=== PATIENT | female | born 1930 | race Caucasian/White ===

== ENCOUNTER 2019-01-08 12:15 | Inpatient (IN) | payer MEDICARE ==
[~2019-01-08] VITALS: Ht 157.5 cm; Wt 62.2 kg
[2019-01-08] MEDS ORDERED: Aspirin EC81 MG PO (12:48)
[2019-01-08 13:11] LABS: BASOPHILS ABSOLUTE AUTO 0.03 K/mm3 (0.00-0.23); BASOPHILS PERCENT AUTO 0 % (0-2); EOSINOPHILS ABSOLUTE AUTO 0.01 K/mm3 (0.00-0.68); EOSINOPHILS PERCENT AUTO 0 % (0-6); Hematocrit 43.8 % (33.0-51.0); Hemoglobin 13.2 g/dL (11.5-16.0); IMMATURE GRAN ABSOLUTE AUTO 0.05 K/mm3 (0.00-0.10); IMMATURE GRAN PERCENT AUTO 1 % (0-1); LYMPHOCYTES ABSOLUTE AUTO 1.21 K/mm3 (0.84-5.20); LYMPHOCYTES PERCENT AUTO 13 % (21-46); MONOCYTES ABSOLUTE AUTO 1.07 K/mm3 (0.16-1.47); MONOCYTES PERCENT AUTO 11 % (4-13); Mean Corpuscular HGB 30.6 pg (26.0-34.0); Mean Corpuscular HGB Conc 30.1 g/dL (31.5-36.5); Mean Corpuscular Volume 102 fL (80-100); Mean Platelet Volume 10.7 fL (9.1-12.4); NEUTROPHILS ABSOLUTE AUTO 7.14 K/mm3 (1.96-9.15); NEUTROPHILS PERCENT AUTO 75 % (41-73); Platelet Count 219 K/mm3 (150-400); RDW Coefficient Variation 13.8 % (11.7-14.2); RDW Standard Deviation 52.1 fL (35.1-46.3); Red Blood Cell Count 4.31 M/mm3 (3.80-5.20); White Blood Cell Count 9.51 K/mm3 (4.00-11.30)
[2019-01-08 13:31] LABS: Albumin, Blood 3.5 g/dL (3.4-5.0); Albumin/Globulin Ratio 1.1 (0.8-1.8); Bilirubin, Total 1.1 mg/dL (0.1-1.0); Bun/Creatinine Ratio 24.6 (12.0-20.0); Calcium, Blood 8.6 mg/dL (8.5-10.1); Creatinine, Blood 1.14 mg/dL (0.40-1.00); Globulin, Blood 3.3 g/dL (2.2-4.0); Potassium, Blood 4.1 mmol/L (3.5-5.5); Total Protein, Blood 6.8 g/dL (6.4-8.2)
[2019-01-08 14:09] LABS: Troponin I 18.8 ng/mL (0.000-0.040)
[2019-01-08 15:45] LABS: International Normalized Ratio 1.02; Prothrombin Time Results 10.8 Sec (9.7-11.5)
--- NOTE | 2019-01-08 17:03 | NUR ---
ARRIVAL PT ARRIVED TO PCU 7 VIA STRETCHER. PT AMBULATED FROM STRETCHER TO BED. DYSPNEA NOTED ON EXERTION. ALERT AND ORIENTED X3. VSS. DENIES PAIN AT THIS TIME. LUNG SOUNDS CLEAR, DIMINISHED RUL, CRACKLES LLL. SINUS TACHYCARDIA RATE 101 PER RUG INSPECTOR HELPER. HEPARIN GTT AND BOLUS STARTED PER ORDERS. CALL LIGHT IN REACH.
--- NOTE | 2019-01-08 18:17 | NUR ---
SHIFT SUMMARY PT ARRIVED FROM ER. NO ACUTE CHANGES SINCE ARRIVAL. ALERT AND ORIENTED X3. DENIES PAIN THROUGHOUT THE DAY. DYSPNEA ON EXERTION. LUNG SOUNDS CLEAR, DIMINISHED RUL, CRACKLES LLL. VSS. PT STATES SHE IS YAZIDISM, BLOOD REFUSAL FORM SIGNED. AT BEDSIDE. WILL CONTINUE TO MONITOR.
[2019-01-09 05:37] LABS: BASOPHILS ABSOLUTE AUTO 0.02 K/mm3 (0.00-0.23); BASOPHILS PERCENT AUTO 0 % (0-2); EOSINOPHILS ABSOLUTE AUTO 0.01 K/mm3 (0.00-0.68); EOSINOPHILS PERCENT AUTO 0 % (0-6); Hematocrit 39.1 % (33.0-51.0); Hemoglobin 12.7 g/dL (11.5-16.0); IMMATURE GRAN ABSOLUTE AUTO 0.03 K/mm3 (0.00-0.10); IMMATURE GRAN PERCENT AUTO 0 % (0-1); LYMPHOCYTES ABSOLUTE AUTO 1.15 K/mm3 (0.84-5.20); LYMPHOCYTES PERCENT AUTO 13 % (21-46); MONOCYTES ABSOLUTE AUTO 1.04 K/mm3 (0.16-1.47); MONOCYTES PERCENT AUTO 12 % (4-13); Mean Corpuscular HGB 30.6 pg (26.0-34.0); Mean Corpuscular HGB Conc 32.5 g/dL (31.5-36.5); Mean Platelet Volume 10.9 fL (9.1-12.4); NEUTROPHILS ABSOLUTE AUTO 6.63 K/mm3 (1.96-9.15); NEUTROPHILS PERCENT AUTO 75 % (41-73); Platelet Count 175 K/mm3 (150-400); RDW Coefficient Variation 13.7 % (11.7-14.2); Red Blood Cell Count 4.15 M/mm3 (3.80-5.20); White Blood Cell Count 8.88 K/mm3 (4.00-11.30)
[2019-01-09 05:45] LABS: Mean Corpuscular Volume 94 fL (80-100)
--- NOTE | 2019-01-09 05:52 | NUR ---
SHIFT SUMMARY PATIENT REMAINED STABLE THROUGHOUT SHIFT, ALERT AND ORIENTED, NORMAL SINUS RHYTHM AT 79, SOB ON [id number], DENIES PAIN, NUMBNESS OR TINGLING AT THIS TIME. BED LOCK, POSITION IN LOW POSITION AND CALL LIGHT WITHIN REACH.
[2019-01-09 06:09] LABS: Alanine Aminotransfer (ALT/SGP 91 U/L (12-78); Albumin, Blood 3.3 g/dL (3.4-5.0); Alk Phos 75 U/L (50-136); Anion Gap 9 mmol/L (6-16); Aspartate Aminotrans (AST/SGOT 233 U/L (12-37); Bilirubin, Total 0.7 mg/dL (0.1-1.0); Blood Urea Nitrogen 32 mg/dL (8-24); Bun/Creatinine Ratio 33.6 (12.0-20.0); CHOL/HDL RATIO 2.7; CO2, Blood 24 mmol/L (21-32); Calcium, Blood 8.5 mg/dL (8.5-10.1); Chloride, Blood 105 mmol/L (98-108); Cholesterol 166 mg/dL (50-200); Creatinine, Blood 0.95 mg/dL (0.40-1.00); Globulin, Blood 3.2 g/dL (2.2-4.0); Glomerular Filtration Rate 59 (60-); Glucose, Blood 117 mg/dL (70-99); HDL Cholesterol 61 mg/dL (>39); LDL/HDL RATIO 1.5; Low Density Lipoprotein Chol 89 mg/dL (0-110); Potassium, Blood 3.6 mmol/L (3.5-5.5); Sodium, Blood 138 mmol/L (136-145); Total Protein, Blood 6.5 g/dL (6.4-8.2); Triglycerides 82 mg/dL (30-160); Very Low Density Lipoprot Chol 16 mg/dL (6-32)
--- NOTE | 2019-01-09 11:11 | NUR ---
1050 PT TO HEART CENTER VIA
--- NOTE | 2019-01-09 11:49 | NUR ---
echocardiogram completed
--- NOTE | 2019-01-09 12:11 | NUR ---
PT RETURNED FROM HEART CENTER. RIGHT WRIST SOFT, NO BLEED OR HEMATOMA, TR BAND AND ARM BOARD IN PLACE. VSS. DENIES PAIN. CALL LIGHT IN REACH.
--- NOTE | 2019-01-09 18:03 | NUR ---
SHIFT SUMMARY PT RESTING IN BED THROUGHOUT THE DAY, UP TO CHAIR THIS EVENING. ALERT AND ORIENTED X3. DENIES PAIN THROUGHOUT THE DAY. LUNG SOUNDS CLEAR, CRACKLES TO THE BASES. DYSPNEA ON EXERTION, BUT RECOVERS EASILY. PT TO HEART CENTER FOR ANGIOGRAM. UPON RETURN, TR BAND IN PLACE. RIGHT WRIST SOFT, NO BLEED OR HEMATOMA, TR BAND CDI. DENIES PAIN AT THIS TIME. UP TO BEDSIDE COMMODE INDEPENDENTLY, APPEARS TO BE BREATHING MORE EASILY THIS AFTERNOON AFTER HER DOSE OF LASIX. AT BEDSIDE THROUGHOUT THE DAY. WILL CONTINUE TO MONITOR.
--- NOTE | 2019-01-09 18:43 | NUR ---
ALL AIR REMOVED FROM TR BAND PER PROTOCOL. NO BLEEDING NOTED. RIGHT WRIST SOFT, NO BLEED OR HEMATOMA. ARM BOARD IN PLACE.
--- NOTE | 2019-01-09 19:30 | NUR ---
ASSUMED CARE PT CARE ASSUMED AT APPROXIMATELY 1900. PT IS AOX4 AND SITTING UP IN BED VISITING WITH SPOUSE. PT DENIES CP AT THIS TIME. R RADIAL SITE WITH TR BAND IN PLACE OVER PINPOINT INCISION WITH SMALL AMOUNT OF DRY, RED DRAINAGE NOTED UNDER TR BAND. NO BRUSING, HEMATOMA OR SWELLING NOTED TO R RADIAL SITE AND PT DENIES PAIN ON PALPATION. TR BAND IS COMPLETELY DEFLATED AND WHITE ARM BOARD REMAINS IN PLACE TO DISCOURAGE WRIST MOVEMENT AT THIS TIME. CAPILLARY REFILL WNL AND PULSES PALPABLE. WILL CONTINUE WITH ASSESSMENT AND MONITORING.
[2019-01-10 04:27] LABS: Bun/Creatinine Ratio 33.4 (12.0-20.0); Calcium, Blood 8.3 mg/dL (8.5-10.1); Creatinine, Blood 0.96 mg/dL (0.40-1.00); Magnesium, Blood 2.3 mg/dL (1.6-2.4); Potassium, Blood 3.4 mmol/L (3.5-5.5)
--- NOTE | 2019-01-10 06:51 | NUR ---
SHIFT SUMMARY PT HAS REMAINED AOX4 THROUHGOUT SHIFT. VSS. PLEASANT AND COOPERATIVE WITH CARE. PT CONTINUES TO AMBULATE WITH STANDBY ASSIST TO BEDSIDE COMMODE. DENIES CHEST PAIN, BUT CONTINUES TO HAVE DYSPNEA WITH EXERTION THAT HAS DECREASED THROUGHOUT THE NIGHT PER PT. R RADIAL SITE HAS REMAINED UNCHANGED AND CLEAR TEGADERM DRESSING COVERS SITE WITH ARM BOARD IN PLACE. PT EDUCATED ON POST PROCEDURE RESTRICTIONS AND ENCOURAGED TO NOT USE R WRIST EXCESSIVELY. NO OTHER CHANGES NOTED FROM INITIAL ASSESSMENT. WILL CONTINUE TO MONITOR AND REPORT ON ONCOMING SHIFT RN. BED IN LOW POSITION, CALL LIGHT IN REACH.
[2019-01-10 11:07] LABS: Hematocrit 41.8 % (33.0-51.0); Hemoglobin 13.2 g/dL (11.5-16.0); Mean Corpuscular HGB 30.7 pg (26.0-34.0); Mean Corpuscular HGB Conc 31.6 g/dL (31.5-36.5); Mean Platelet Volume 10.9 fL (9.1-12.4); Platelet Count 211 K/mm3 (150-400); RDW Coefficient Variation 13.8 % (11.7-14.2); RDW Standard Deviation 49.6 fL (35.1-46.3); White Blood Cell Count 10.65 K/mm3 (4.00-11.30)
--- NOTE | 2019-01-10 11:09 | NUR ---
PT READY FOR DISCHARGE. PT STATES SHE HAD A BLACK BM. DR. RUDOLPH NOTIFIED, ORDERS RECEIVED.
[2019-01-10 11:12] LABS: Mean Corpuscular Volume 97 fL (80-100)
[2019-01-10] MEDS ORDERED: ATOR40TA PO (11:56)
[2019-01-10] MEDS ORDERED: CLOP75 PO (11:58)
[2019-01-10] MEDS ORDERED: FURO40 PO (11:59)
[2019-01-10] MEDS ORDERED: METO25ER PO (12:00)
[2019-01-10] MEDS ORDERED: ENTRESTO 24 MG1 EACH PO (12:02)
[2019-01-10] MEDS ORDERED: PANT40 PO (12:03)
[2019-01-10] MEDS ORDERED: Omeprazole20 M1 PO (12:41)
--- NOTE | 2019-01-10 13:36 | NUR ---
PT'S CBC IS STABLE. OK PER DR. RUDOLPH FOR DISCHARGE. PT AND CONCERNED ABOUT MEDICATIONS COST AND NECESSITY. STATES "SHE DOES NOT HAVE A STOMACH ULCER. THE BLACK STOOL STARTED AFTER SHE STARTED TAKING THESE MEDICATIONS" DISCUSSED RISK OF ULCER / BLEEDING R/T PLAVIX AND EDUCATED FAMILY THAT PROTONIX WAS PRESCRIBED TO PREVENT AND TREAT ULCERS. STATES "SHE DOES NOT HAVE ULCERS". DISCUSSED MEDS AND BLACK STOOL WITH DR. DURANT. DR. DURANT WANTS TO HOLD OFF ON PLAVIX UNTIL SHE IS EVALUATED BY GI AN OUTPATIENT SINCE SHE IS HAVING BLACK STOOLS. WILL DC PLAVIX AND PROTONIX, ADD OMEPRAZOLE [address] RUDOLPH NOTIFIED. [facility] CALLED WITH CHANGES TO PRESCRIPTIONS. FAMILY SEEMS AGREEABLE TO NEW MEDICATIONS. INSTRUCTED TO STOP AND ELECTROCARDIOGRAPH TECHNICIAN COUPON AND SAMPLES OF ENTRESTO FROM DR. DURANT' OFFICE. DISCHARGE MEDICATIONS, DISCHARGE INSTRUCTIONS, MEDICATION EDUCATION, CHF EDUCATION, AND POST RADIAL ACCESS INSTRUCTIONS REVIEWED WITH PT AND . PT VERBALIZES UNDERSTANDING AND DENIES QUESTIONS. PT'S STATES "THIS IS RIDICULOUS. THIS IS TOO MUCH INFORMATION." IV REMOVED. PT DISCHARGED WITH BELONGINGS VIA WHEELCHAIR TO WAITING CAR.
[2019-01-10 14:22] LABS: Stool Occult Blood Guaiac 1 Pos (Neg)
== END 2019-01-10 13:31 | disposition home or self-care (01) | DRG 280 ==
LOC: ER 12:15 → PCU 12:16 → ERHOLD 12:16 → ER 15:04 → PCU 15:04 → ERHOLD 15:04 → PCU 15:04 → ERHOLD 16:06 → PCU 01-09 17:00
PROVIDERS: Emergency Medicine; Internal Medicine Cardiovascular Disease; Pharmacist; ADMIT Hospitalist
PROC: B2111ZZ Fluoroscopy of Multiple Coronary Arteries using Low Osmolar Contrast (ICD-10-PCS; principal; 2019-01-10)
DX: I21.4 Non-ST elevation (NSTEMI) myocardial infarction (principal); I50.21 Acute systolic (congestive) heart failure; J96.01 Acute respiratory failure with hypoxia; E87.1 Hypo-osmolality and hyponatremia; N17.9 Acute kidney failure, unspecified; N18.3 Chronic kidney disease, stage 3 (moderate); R73.9 Hyperglycemia, unspecified
CPT/HCPCS: 36415; 71046; 80048; 80053; 80061; 82272; 82947; 83036; 83735; 83880; 84484; 85025; 85027; 85610; 85730; 93005; 93010; 93306; 93454; 99285-25; A9270; C1769; C1894; G0378; J1644; J1940; J2250; J3010; J7030; Q9967

== ENCOUNTER 2019-01-14 07:32 | Inpatient (IN) | payer MEDICARE ==
[~2019-01-14] VITALS: Ht 157.5 cm; Wt 64.7 kg
[~2019-01-14 07:32] MED LIST: ATOR40TA PO; Aspirin EC81 MG PO; CLOP75 PO; ENTRESTO 24 MG1 EACH PO; FURO40 PO; METO25ER PO; Omeprazole20 M1 PO; PANT40 PO
[2019-01-14 07:49] LABS: BASOPHILS ABSOLUTE AUTO 0.02 K/mm3 (0.00-0.23); BASOPHILS PERCENT AUTO 0 % (0-2); EOSINOPHILS ABSOLUTE AUTO 0.05 K/mm3 (0.00-0.68); EOSINOPHILS PERCENT AUTO 1 % (0-6); Hematocrit 38.4 % (33.0-51.0); IMMATURE GRAN ABSOLUTE AUTO 0.03 K/mm3 (0.00-0.10); IMMATURE GRAN PERCENT AUTO 0 % (0-1); LYMPHOCYTES ABSOLUTE AUTO 1.44 K/mm3 (0.84-5.20); LYMPHOCYTES PERCENT AUTO 18 % (21-46); MONOCYTES ABSOLUTE AUTO 0.78 K/mm3 (0.16-1.47); MONOCYTES PERCENT AUTO 10 % (4-13); Mean Corpuscular HGB 30.2 pg (26.0-34.0); Mean Corpuscular HGB Conc 31.3 g/dL (31.5-36.5); Mean Corpuscular Volume 97 fL (80-100); Mean Platelet Volume 10.9 fL (9.1-12.4); NEUTROPHILS ABSOLUTE AUTO 5.49 K/mm3 (1.96-9.15); NEUTROPHILS PERCENT AUTO 70 % (41-73); Platelet Count 240 K/mm3 (150-400); RDW Coefficient Variation 13.8 % (11.7-14.2); RDW Standard Deviation 48.6 fL (35.1-46.3); Red Blood Cell Count 3.98 M/mm3 (3.80-5.20); White Blood Cell Count 7.81 K/mm3 (4.00-11.30)
[2019-01-14 08:16] LABS: Albumin, Blood 3.1 g/dL (3.4-5.0); Bilirubin, Total 0.7 mg/dL (0.1-1.0); Bun/Creatinine Ratio 25.7 (12.0-20.0); Calcium, Blood 8.1 mg/dL (8.5-10.1); Creatinine, Blood 2.02 mg/dL (0.40-1.00); Potassium, Blood 3.9 mmol/L (3.5-5.5); Total Protein, Blood 6.1 g/dL (6.4-8.2)
[2019-01-14 08:18] LABS: Troponin I 4.51 ng/mL (0.000-0.040)
--- NOTE | 2019-01-14 15:10 | NUR ---
1355: PT TO ICU 14 FROM ER AT THIS TIME, REPORT RECEIVED FROM COURTNEY. ASSESSMENT COMPLETED, PT ALERT AND ORIENTED X4, APPROPRIATE AND COOPERATIVE. HRR, LS CTA, PT REPORTS FEELING SOB WITH EXERTION, SPO2 98-100% ON 2L/NC. BP HYPOTENSIVE, MAP 60, PT DENIES DIZZINESS OR CP, DENIES SOB AT REST. AT BEDSIDE. 1430: AARTI RN AT BEDSIDE FOR POWERGLIDE. 1500: POWERGLIDE PLACEMENT UNSUCCESSFUL, DOBUTAMINE INFUSING AT 2.5MCG/KG/MIN VIA PERIPHERAL IV AT THIS TIME FOR MAP 59. PT CONTINUES TO DENY C/O, OTHER VSS.
[2019-01-14 17:37] LABS: Source, Urine Catheter
[2019-01-14 17:41] LABS: Appearance, Urine Hazy (Clear); Bilirubin, Urine Neg (Neg); Blood, Urine Neg (Neg); Color, Urine Yellow (P-Yellow); Glucose Qualitative, Urine Neg (Neg); Ketones, Urine 1+ (Neg); Leukocyte Esterase, Urine Neg (Neg); Nitrite, Urine Neg (Neg); Protein, Urine 3+ (Neg); Specific Gravity, Urine 1.025 (1.003-1.022); Urobilinogen, Urine NORM (Normal)
[2019-01-14 17:58] LABS: Bacteria Few /hpf; Red Blood Cells, Urine Not Seen /hpf (0-2); Squamous Epithelial Cells Few /hpf (Few); White Blood Cells, Urine Rare /hpf (0-5)
[2019-01-14 17:59] LABS: Amorphous Mod (0-Heavy); Hyaline Casts TNTC /lpf (0-2); Mucus Light (0-Heavy)
--- NOTE | 2019-01-14 19:20 | NUR ---
164: DR. VERDUGO AWARE OF TROPONIN, NO NEW ORDERS RE: TROPONIN. CONTINUING TO TITRATE DOBUTAMINE PER ORDERS. MAP 50'S, PT ASYMPTOMATIC, STATES SOB IS MINIMAL WITH REST, SPO2 98% ON 2L/NC. 1814: DR NOTIFIED OF MAP 49-50'S, DR. VERDUGO STATES TO LEAVE DOBUTAMIN INFUSING AT 20MCG/KG/MIN. PT CODE STATUS CHANGED TO DNR PER PT AND DR. VERDUGO. NO CHANGES MADE TO PT'S MEDICATION INFUSION AT THIS TIME. PT ASYMPTOMATIC, DENIES CHEST PAIN OR DIZZINESS, STATES SOB IS MINIMAL. RAYMOND INSERTED PER ORDERS, 20ML OUT, SPECIMEN SENT TO LAB. APPETITE IS POOR, PT TOOK A FEW BITES OF DINNER. 1899: REPORT TO CHONG FLORES. MAP 40'S, PT REMAINS ALERT AND ORIENTED X4, ASYMPTOMATIC. SPO2 HIGH 90'S ON 2L/NC.
--- NOTE | 2019-01-14 19:33 | NUR ---
DR. MCDOWELL NOTIFIED: UPDATED RE: FALLING BLOOD PRESSURES AND DISCUSSION WITH PT RE: DNR STATUS AND EXTENT OF CARE DESIRED BY PT. PT UNDESISIVE AT THIS POINT. PT STATED, "MAYBE MY BODY JUST DOESN'T WANT TO GO THROUGH ALL OF THAT". NEW ORDERS PER DR. MCDOWELL TO GIVE 500cc NS BOLUS AND DR. MCDOWELL STATED WILL BE BY TO TALK WITH THE PATIENT.
--- NOTE | 2019-01-14 19:47 | NUR ---
DR. MCDOWELL AT BEDSIDE. ORDERED ONE LITER BOLUS NOW.
--- NOTE | 2019-01-14 20:21 | NUR ---
DR. MCDOWELL TO BEDSIDE. NEW ORDERS TO REDUCE NS BOLUS BACK TO 500cc THEN MAINTENANCE FLUID NS 50ml/hr AFTER BOLUS COMPLETE.
--- NOTE | 2019-01-14 20:23 | NUR ---
IV ACCESS: ONE 20g TO R HAND AT CHANGE OF SHIFT. APPARENTLY DAY SHIFT RN'S TRIED SEVERAL TIMES FOR SECOND ACCESS. THIS RN AND WORKFORCE ANALYST X3 ATTEMPTS NO SUCCESS. DR. MCDOWELL AT BEDSIDE STATED TO INFUSE NS BOLUS FOR NOW. WILL TRY SECOND IV ACCESS AFTER NS BOLUS COMPLETE. DOBUTAMINE ON HOLD WHEN NS BOLUS STARTED. DR. MCDOWELL AWARE.
--- NOTE | 2019-01-14 20:47 | NUR ---
UPDATE: DR. MCDOWELL TALKED TO PT'S SPOUSE. DR. MCDOWELL TO BEDSIDE ONCE MORE AND VERBAL TO DC BOLUS AND DC ORDER FOR MAINTENANCE NS 50mL/hr AND TO LEAVE NS ON TKO. STEM CRUSHERCHONG NASH AT BEDSIDE AND EMPHASIZED ONCE MORE DOBUTAMINE INFUSING IN A PERIPHERAL AND NEED FOR CENTERAL LINE. DR. MCDOWELL GAVE VERBAL FOR INTESIVIST CONSULT FOR LINE PLACEMENT. DR. LEGGETT IN DEPARTMENT AND CONSULTED PER STEM CRUSHER WHO STATED THAT DR. LEGGETT GAVE A VERBAL TO CONSULT CARDIOLOGY. STEM CRUSHER SAAD CALL DR. RIGGINS AND UPDATED DR. RIGGINS WHO STATED DID NOT WANT TO PLACE CENTRAL LINE AT THIS TIME SINCE PT IS ALERT AND ORIENTED.
--- NOTE | 2019-01-14 20:48 | NUR ---
CALL TO DR RIGGINS REGARDING HYPOTENSION AND NEEDING A CENTRAL LINE. REPORT GIVEN. NO CENTAL LINE AT THIS TIME.
--- NOTE | 2019-01-14 21:39 | NUR ---
DR. LEGGETT AT [facility] FOR CL PLACEMENT.
--- NOTE | 2019-01-14 21:55 | NUR ---
CHEST XRAY DONE. DR. BETSEY UNGER FOR USE OF C.L.
--- NOTE | 2019-01-14 22:03 | NUR ---
DR. RAMIREZ AT BEDSIDE.
--- NOTE | 2019-01-14 22:05 | NUR ---
PERIPHERAL IV DC'D. TKO AND DOBUTAMINE INFUSING THROUGH CL. DR. RAMIREZ CONTINUES AT BEDSIDE.
--- NOTE | 2019-01-14 22:30 | NUR ---
WHILE AT BEDSIDE, DR. RAMIREZ TALKED EXTENXIVELY WITH PT RE: CURRENT TREATMENT AND FURTHER TREATMENT AVAILABLE AND SUGGESTED. PT STATED DID NOT WANT AND ART LINE PLACED AND DID NOT WANT ANY ADDITIONAL TREATMENT OR ADDED VASOPRESSORS. PT STATED WANTED TO STAY WITH CURRENT TREATMENT IS WITH THE HOPES OF SEEING FAMILY WHEN THEY ARRIVE. DR. RAMIREZ STATED TO CONTACT DR. MCDOWELL RE: CURRENT MEDICATION INFUSIIONS AND MONITOR PARIMETERS. DR. MCDOWELL CALLED AND STATED TO KEEP CURRENT NS AT TKO AND DOBUTAMINE AT CURRENT RATE (20mcg/kg/min) AND TO OVERIDE MONITOR BP PARIMETERS.
--- NOTE | 2019-01-15 03:30 | NUR ---
PT WITH FAMILY AT BEDSIDE. FAMILY UPDATED WITH PT'S INVOLVMENT IN EXPLAINING DISCUSSIONS WITH DR. MCDOWELL AND DR. RAMIREZ. PT A+O WITH NO CHANGES IN MENTATION, TALKING FULL SENTENCES APPROPRIATELY. QUESTIONS ANSWERED TO PT'S SPOUSE AND SON. FAMILY REMAINS AT BEDSIDE CONVERSING WITH PT.
[2019-01-15 04:52] LABS: BASOPHILS PERCENT AUTO 0 % (0-2); EOSINOPHILS PERCENT AUTO 0 % (0-6); Hematocrit 32.3 % (33.0-51.0); Hemoglobin 10.4 g/dL (11.5-16.0); IMMATURE GRAN ABSOLUTE AUTO 0.03 K/mm3 (0.00-0.10); IMMATURE GRAN PERCENT AUTO 1 % (0-1); LYMPHOCYTES ABSOLUTE AUTO 0.43 K/mm3 (0.84-5.20); LYMPHOCYTES PERCENT AUTO 7 % (21-46); MONOCYTES ABSOLUTE AUTO 0.61 K/mm3 (0.16-1.47); MONOCYTES PERCENT AUTO 10 % (4-13); Mean Corpuscular HGB 30.9 pg (26.0-34.0); Mean Corpuscular HGB Conc 32.2 g/dL (31.5-36.5); Mean Corpuscular Volume 96 fL (80-100); Mean Platelet Volume 10.9 fL (9.1-12.4); NEUTROPHILS ABSOLUTE AUTO 5.14 K/mm3 (1.96-9.15); NEUTROPHILS PERCENT AUTO 83 % (41-73); Platelet Count 153 K/mm3 (150-400); RDW Coefficient Variation 13.9 % (11.7-14.2); RDW Standard Deviation 49.1 fL (35.1-46.3); Red Blood Cell Count 3.37 M/mm3 (3.80-5.20); White Blood Cell Count 6.21 K/mm3 (4.00-11.30)
[2019-01-15 05:17] LABS: Albumin, Blood 2.8 g/dL (3.4-5.0); Albumin/Globulin Ratio 1.1 (0.8-1.8); Bilirubin, Total 0.5 mg/dL (0.1-1.0); Bun/Creatinine Ratio 23.3 (12.0-20.0); Calcium, Blood 7.7 mg/dL (8.5-10.1); Creatinine, Blood 2.66 mg/dL (0.40-1.00); Globulin, Blood 2.5 g/dL (2.2-4.0); Potassium, Blood 4.2 mmol/L (3.5-5.5); Total Protein, Blood 5.3 g/dL (6.4-8.2)
--- NOTE | 2019-01-15 06:24 | NUR ---
DR. GLASS NOTIFIED RE: TROPONIN OF 5.27. NEW ORDER TO REPEAT TROPONIN IN EIGHT HOURS.
--- NOTE | 2019-01-15 14:24 | NUR ---
0715: CARE ASSUMED, ASSESSMENT COMPLETED. PT RESTING IN BED, A&0X4, DENIES CHEST PAIN/PRESSURE, SOB, DIZZINESS, DIAPHORESIS, OR NAUSEA AT THIS TIME. MAP REMAINS 40'S, DOBUTAMINE INFUSING PER ORDERS AT 20MCG/KG/MIN. SPO2 HIGH 90'S ON RA, O2 LEFT OFF. PT DENIES NEEDS OR C/O AT THIS TIME. 0930: ROCEPHIN INFUSING PER ORDERS, SON AND AT BEDSIDE TALKING WITH PT, PT CALM AND COOPERATIVE, DENIES NEEDS. APPETITE POOR, PT DENIES NAUSEA OR ABD PAIN. PT AWARE OF SITUATION, STATES SHE KNOWS THAT HER HEART WILL NOT RECOVER AND THAT SHE DOES NOT WANT EXTRAORDINARY LIFE SAVING MEASURES TAKEN. DR. HOGUE AT BEDSIDE TO SPEAK WITH PT AND FAMILY, PT AGREES TO WAIT UNTIL HER ADULT CHILDREN ARRIVE FROM OUT OF STATE BEFORE MAKING THE DECISION TO MOVE FORWARD WITH COMFORT CARE. STATES HE WANTS TO TAKE HOME BUT WOULD LIKE TO HAVE PRESSORS AVAILABLE, AND PT EDUCATED REGARDING MEDICATIONS, HOSPITAL CARE VS. HOME CARE AND THE IMPLICATIONS OF EACH. 1100: NO CHANGES NOTED, MAP REMAINS 40'S, PT DENIES DISCOMFORT. 1300: PT RESTING IN BED WITH EYES CLOSED, SON AND STEPPED OUT MOMENTARILY. VS REMAIN UNCHANGED. 88879: CRITICAL RESULTS RECEIVED, DR. ENRIQUEZ NOTIFIED, NEW ORDERS TO DC ALL FUTURE TROPONIN DRAWS. NO OTHER ORDERS AT THIS TIME. PT ALERT AND ORIENTED, DENIES CHEST PAIN/PRESSURE, OR SOB. SPO2 HIGH 90'S ON RA. VS REMAIN UNCHANGED, DOBUTAMINE CONTINUES TO INFUSE.
--- NOTE | 2019-01-15 16:15 | NUR ---
1415: PT'S FAMILY HAS ARRIVED FROM OUT OF STATE, ARE AT BEDSIDE AT THIS TIME VISITING WITH PT. PT REMAINS A&0X4, MAP 40'S, DOBUTAMINE INFUSION UNCHANGED. PALLIATAVE CARE AT BEDSIDE, WILL NOTIFY DR. HOGUE OF FAMILY'S ARRIVAL WELL.
--- NOTE | 2019-01-15 17:02 | NUR ---
DR. HOGUE AT BEDSIDE.
--- NOTE | 2019-01-15 18:46 | NUR ---
1730: DR HOGUE DISCUSSED HEALTHCARE OPTIONS WITH FAMILY, INCLUDING HOSPICE CARE AT HOME AND COMFORT CARE IN THE HOSIPTAL. PT STATES SHE WOULD LIKE TO RESUME DOBUTAMINE TONIGHT AND THINK ABOUT HER OPTIONS, REPORTS SHE WILL DISCUSS THE PLAN WITH HER FAMILY AND TALK TOMORROW AFTERNOON WITH THE DOCTOR REGARDING HER DECISION. 1830: PT REFUSED DINNER STATING SHE HAS A POOR APPETITE, REFUSES REGULAR DIET AND FOOD BROUGHT BY FAMILY MEMBERS. PT DENIES SOB, CHEST PAIN/PRESSURE, DIZZINES, DIAPHORESIS, OR NAUSEA, HAS DENIED THESE SX ALL DAY. MAP 41, HR 96, DOBUTAMINE INFUSION 20MCK/KG/HR, URINE OUTPUT 12ML THIS SHIFT. LS WITH FINE CRACKLES IN BASES, SPO2 96% ON RA, PT RESTING IN BED WITH EYES CLOSED WHILE FAMILY IS OUT OF ROOM, DENIES NEEDS OR DISCOMFORT. REPORT TO ONCOMING SHIFT.
--- NOTE | 2019-01-15 20:37 | NUR ---
Called to meet with familymultiple family in room. Pt very alert and interactive. She asked right away about going home. So conversation lead to hospice care if we can transition home. Goal of conversation was to give pt some control to steer discussion and hopelfull give a balance of hope and realistic goals. Review of hospice care and support and medications. Discussed with family that response to medications and prognosis will need to be review with physician. Family asked for strategies for speaking with and giving them time alone. They asked about if she declines keeping her here and comfort care. Review of care and medications and process. Gave them quilt to make neck roll for her neck fatigue and discomfort. Advised will assist as needed tomorrow. They have strong involvement in their justino will see if support available tomorrow.
--- NOTE | 2019-01-15 21:21 | NUR ---
START OF SHIFT: BEDSIDE REPORT FROM JANICE RN. PT ASLEEP BUT AWAKENS EASILY TO RN'S AT BEDSIDE. PT WITH NO FAMILY IN THE ROOM AT THE TIME. PT REPOSITIONED PER PT FOR PT COMFORT. PT STATED DID NOT LIKE LYING ON HER SIDE SO PT WEDGED WITH PILLOWS. PT STATED HAS HAD SEVERAL VISITORS T/O THE DAY AND IS TIRED BUT HAS BEEN MAKING LIMITS TO CERTAIN VISITATIONS. PT WITH NOT OTHER REQUEST OR CONCERNS AT THAT TIME. FAMILY CAME TO BEDSIDE AND WERE UPDATED. PT'S VERBALIZED HIS UNDERSTANDING OF THE CONVERSATION WITH DR. ESPANA. SPOUSE AND FAMILY CONSOLED AND REASSURED THAT PLANNING AND PT CARE WILL BE ADDRESSED THOROUGHLY TOMORROW DR. ESPANA HAD STATED. PT HAS APPEARED COMFORTABLE THIS NOC THUS FAR WITH NO REQUESTS OR CONCERNS. DOBUTAMINE gtt INFUSING REMAINING AT 20 mcg/kg/min. ONE OF PT'S DAUGHTERS STAYING IN THE ROOM WITH PT THIS NOC AND WAS MADE A BED. PT CURRENTLY SLEEPING. WILL CONTINUE TO MONITOR.
--- NOTE | 2019-01-15 22:59 | NUR ---
PT USED CALL LIGHT. C/O BP CUFF UNCOMFORTABLE. CUFF MOVED TO RIGHT WRIST. PT ONLY OTHER C/O WERE FEET. HEELS ELEVATED WITH MORE PILLOWS. PT STATED, "NO, I'M FINE TO ANY OTHER REPOSITIONING". PT DENIED PAIN BUT SEEMS A LITTLE SOB. PT REFUSED ROXANOL AND DID NOT WANT OXYGEN VIA N/C PLACED. PT REMAINS ON RA-SATS 95%. CALL IN HAND. WILL CONTINUE TO MONITOR.
--- NOTE | 2019-01-16 06:25 | NUR ---
PT WANTING COMFORT CARE: THIS RN TALKED TO PT AND FAMILY T/O NOC RE: HOSPICE AND COMFORT CARE. PT STATED THAT SHE WOULD RATHER REMAIN AT THE HOSPITAL ON COMFORT CARE WITH FEARFUL OF WHAT MAY HAPPEN WHEN PT IS AT HOME. PT'S DAUGHTER LINDA AT BEDSIDE DURING A CONVERSATION WHERE PT STATED, "I WANT WHAT I WANT AND I WANT TO STAY HERE AND GO UP STAIRS". PT AND LINDA STATE WANTS PT'S SPOUSE AND SON IN ROOM BEFORE CALLING THE DOCTOR.
--- NOTE | 2019-01-16 10:32 | NUR ---
0730: CARE ASSUMED, ASSESSMENT COMPLETED. PT RESTING IN BED, DAUGHTER AT BEDSIDE. PT REMAINS A&OX4, PLEASANT AND COOPRATIVE. PT AGAIN REINFORCES HER WISHES, WHICH ARE TO SHUT OFF DOBUTAMINE LATER TODAY AND GO UP TO MEDICAL FLOOR FOR END OF LIFE CARE. HOSPICE HAS BEEN DISCUSSED, PT STATES SHE BELIEVES IT WOULD BE TOO HARD ON HER TO TAKE HER HOME AND THAT SHE WISHES TO REMAIN IN THE HOSPITAL. MAP 40'S, HR 90'S, PT DENIES DIZZINES OR SOB, SPO2 MID 90'S ON RA. PT C/O LEFT ARM "HEAVINESS," WILL ADMINISTER ROXANOL PER ORDERS. PT DENIES OTHER NEEDS AT THIS TIME. DOBUTAMIN INFUSING AT 20MCG/KG/MIN. 0900: VISITORS ASKED TO LEAVE AT THIS TIME SO PT CAN REST PER PT'S REQUEST. PT DENIES OTHER NEEDS, REPORTS RELIEF FROM ROXANOL. 1000: DR ESPANA IN TO SEE PT, PT DISCUSSED HER WISHES WITH , NEW ORDERS RECEIVED. PT REMAINS ON DOBUTAMINE GTT AT THIS TIME UNTIL HER FAMILY RETURNS. PT RESTING IN BED WITH EYES CLOSED, VS UNCHANGED, APPEARS TO BE RESTING COMFORTABLY.
--- NOTE | 2019-01-16 13:24 | NUR ---
1200: PT SLEEPING, MAP 53, HR 90'S. PT APPEARS TO BE RESTING COMFORTABLY, NO GRMACING OR RESTLESSNESS NOTED. REASSESSMENT HELD AT THIS TIME. 1315: PT AWAKE, REASSESSED. MAP 49, HR 90'S - 110. PT REPORTS A "HEAVINESS" IN HER CHEST AND LEFT ARM, MORPHINE ADMINISTERED PER ORDERS. PT GIVEN WATER TO DRINK, REFUSES LUNCH OR SNACKS OFFERED, STATES SHE HAS NO APPETITE. PT REMAINS ALONE IN ROOM, NO VISITORS PER HER REQUEST. PT DENIES OTHER NEEDS, REPORTS LESS HEAVINESS AFTER MS. 1325: PALLIATIVE CARE AWARE OF PLAN.
--- NOTE | 2019-01-16 16:36 | NUR ---
1500: PREVIOUSLY NOTED, PT HAS REQUESTED NO VISITORS. WHEN PT'S FAMILY WAS TOLD THIS, THEY BECAME UPSET AND PUSHED INTO THE UNIT TO GET TO HER ROOM. WHEN THIS RN ARRIVED IN ROOM, PT'S TWO DAUGHTERS AND WERE AT BEDSIDE. ALL THREE VISITORS BECAME INCREASINGLY AGITATED, RAISING THEIR VOICES AND STATING THAT THEY WANTED TO BE WITH THEIR MOTHER/. THIS RN ATTEMPTED TO EXPLAIN TO FAMILY PT'S WISHES OF RESTING WITH NO VISITORS, WHICH ONLY CAUSED INCREASED AGITATION AND AGGRESIVE BEHAVIOR. PT'S DAUGHTERS ASKED TO LEAVE, WHICH THEY DID. COOKING CASING AND DRYING SUPERVISOR NOTIFIED, SECURITY CALLED. 1530: SECURITY AND COOKING CASING AND DRYING SUPERVISOR SPOKE WITH PT AND HER FAMILY, IT HAS BEEN AGREED UPON THAT PT WILL HAVE NO MORE THAN 2 VISITORS AT A TIME FOR SHORT VISITS SO THAT SHE CAN REST. STATES "WHY DOES SHE NEED TO REST, SHE IS GOING TO ANYWAY." IMPORTANCE OF REST REITERATED. FAMILY FINISHING UP THEIR VISIT. 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 NO CHANGE IN PT STATUS. PT REPOSITIONED IN BED, REFUSES TO TURN OFF OF HER BACK. NO VISITORS AT BEDSIDE AT THIS TIME, PT RESTING, DENIES NEEDS, REFUSES FLUIDS OR FOOD. DOBUTAMINE INFUSION CONTINUES, PT STATES SHE WILL CALL WHEN SHE IS READY TO STOP GTT AND BE TRANSFERRED TO MEDICAL.
--- NOTE | 2019-01-16 18:25 | NUR ---
1824: PT HAS SEEN ALL FAMILY MEMBERS THAT SHE WAS WAITING FOR, STATES SHE IS READY FOR MEDICATIONS TO BE SHUT OFF AND TO BE MOVED TO MEDICAL FLOOR. DR. HOGUE AWARE, COMFORT CARE ORDERS INITIATED, DOBUTAMINE GTT OFF AT THIS TMIE. PT RESTING QUITELY IN BED, IS ORIENTED X4, DENIES C/O AT THIS TIME. VS UNCHANGED.
--- NOTE | 2019-01-16 18:27 | NUR ---
1800: PT REQUESTS THAT ALL FAMILY MEMBERS GO HOME, DOES NOT WANT ANYONE STAYING THE NIGHT WITH HER, DOES NOT WANT MORE VISITORS. PT ORIENTED X4, FULLY ABLE TO STATE HER OWN WISHES. FAMILY MEMBERS HAVE SAID CHARISSA AND LEFT THE ROOM, ARE AWARE THAT THERE WILL BE NO MORE VISITATIONT TONIGHT. AWARE THAT DOBUTAMINE WILL BE SHUT OFF SOON AND PT WILL BE MOVED TO MEDICAL FLOOR FOR COMFORT CARE.
--- NOTE | 2019-01-16 18:34 | NUR ---
NOTE LEFT FOR PALLIATIVE CARE REGARDING COMFORT MEASURE ORDERS.
--- NOTE | 2019-01-16 19:59 | NUR ---
182: DOBUTAMINE GTT OFF AT THIS TIME, PT AWAITING ROOM ON MEDICAL FLOOR. 1849: HR 80'S, PT RESTING QUIETLY WITH EYES CLOSED, RESPIRATIONS EVEN AND UNLABORED, NO S/SX DISTRESS NOTED. 1899: REPORT BEING GIVEN TO CHONG FLORES. PT'S HR NOW 40'S, FAMILY NOTIFIED AND ON THEIR WAY. 1919: PT IN ASYSTOLE, NO HEART BEAT UPON AUSCULTATION. FAMILY AT BEDSIDE IMMEDIATELY FOLLOWING ASYSTOLE.
== END 2019-01-16 19:20 ==
LOC: ER 07:32 → ICUW 08:50 → ER 13:43 → ICUW 13:48
PROVIDERS: Emergency Medicine; ADMIT Internal Medicine
PROC: 02HV33Z Insertion of Infusion Device into Superior Vena Cava, Percutaneous Approach (ICD-10-PCS; principal; 2019-01-14)
DX: I13.0 Hypertensive heart and chronic kidney disease with heart failure and stage 1 through stage 4 chronic kidney disease, or unspecified chronic kidney disease (principal); I22.2 Subsequent non-ST elevation (NSTEMI) myocardial infarction; E43 Unspecified severe protein-calorie malnutrition; I21.4 Non-ST elevation (NSTEMI) myocardial infarction; J96.01 Acute respiratory failure with hypoxia; I50.43 Acute on chronic combined systolic (congestive) and diastolic (congestive) heart failure; N17.9 Acute kidney failure, unspecified; N18.9 Chronic kidney disease, unspecified; Z51.5 Encounter for palliative care; R57.0 Cardiogenic shock; I25.10 Atherosclerotic heart disease of native coronary artery without angina pectoris; I95.9 Hypotension, unspecified
CPT/HCPCS: 36415; 36556; 51702; 71045; 71046; 80053; 81001; 83605; 83880; 84145; 84484; 85025; 87040; 93005; 93010; 96361; 96365; 96367; 99285-25; C1751; J0456; J0696; J1250; J1940; J2405; J7030; J7050; J7060